=== PATIENT | female | born 1940 | race Caucasian/White ===

== ENCOUNTER → 2018-06-09 12:19 | Outpatient (CLI) | payer MEDICARE ==
--- NOTE | 2018-06-13 08:49 | EC ---
PATIENT:YOBANI FLORES DATE OF SERVICE: 06/09/18 SEX: F MEDICAL RECORD: [id number] DATE OF : 36 LOCATION:[facility] AGE OF PATIENT: 77 ADMISSION DATE: 06/09/18 REFERRING PHYSICIAN: INTERPRETING PHYSICIAN: FÁTIMA BELL MD ECHOCARDIOGRAM REPORT ECHO CHARGES 4 ECHO COMPLETE Date: 06/09/18 CLINICAL DIAGNOSIS: H/O A-[id number]/[id number] ECHOCARDIOGRAPHIC MEASUREMENTS (adult normal given) AC root (d.<3.7cm) 3.0 cm LV Septum d (<1.2 cm> 1.3 cm Valve Excursion 1.4 cm LV Septum (systole) 1.7 cm Left Atria (s.<4.0cm> 3.4 cm LVPW d(<1.2cm) 1.2 cm RV (d.<2.3cm) 3.0 cm LVPW (sytole) 1.5 cm LV diastole(<5.6CM) 4.1 cm MV E-F(>70mm/sec) cm LV systole 2.3 cm LVOT Diameter 1.8 cm MV exc.(>10mm) cm Est.ejection fraction (50-75%) % DOPPLER: LVIT cm/sec A 27.0 cm/sec E 85.0 cm/sec LA cm/sec RVSP 52.0 mmHg LVOT 69.0 cm/sec AOP1/2T m/s Asc. Ao 126 cm/sec RVOT 35.0 cm/sec RA cm/sec PA 69.0 cm/sec AV Gradient Peak 6.3 mmHg AV Mean 3.4 mmHg AV Area 1.4 cm MV Gradient Peak 4.8 mmHg MV Mean 1.2 mmHg MV Area cm COMMENTS: OP - HC Lab Pack Chemist: 1 GILES FRANCISCO Sinter Press Operator: 3 Dr. Major TAPE# PACS Pericardial Effusion N DATE OF SERVICE: 06/09/2018 Adequate 2-D echo, color-flow and spectral Doppler, and M-mode. Borderline LVH. LV internal dimensions are normal. Wall motion is normal. EF is greater than 55%. Aortic valve is tricuspid. No evidence of stenosis by Doppler interrogation. Left atrium is normal at 3.4 cm. Mitral valve shows no prolapse. Mild MR. Right-sided chambers are grossly normal. Mild TR. TRANSINT:[id number] Voice Confirmation ID: [id number] DOCUMENT ID: [id number] ECHOCARDIOGRAM REPORT [id number] HEAD,YOBANI BELL,FÁTIMA Delgado MD at 0849 CC: [id number] DICTATION DATE: 06/12/18 1446 COFFEE SUPERVISOR: 06/12/18 1540 DEP CLI 06/09/18 [place] [id number]
== END | disposition home or self-care (01) ==
LOC: D.HCCARDIO 12:19
DX: I48.91 Unspecified atrial fibrillation (principal)